=== PATIENT | male | born 1965 | race Caucasian/White ===

== ENCOUNTER 2017-03-28 16:26 | Emergency (ER) | payer MEDICARE, OTHER ==
[~2017-03-28] VITALS: Ht 175.3 cm; Wt 75.0 kg
[~2017-03-28 16:26] MED LIST: HYDR25TA PO; LISI2.5T2 PO
[2017-03-28 17:36] LABS: ALANINE AMINOTRANSFERASE 20 U/L (12-78); ALBUMIN 2.1 g/dL (3.4-5.0); ANION GAP 11 mmol/L (8-16); ASPARTATE AMINOTRANSFERASE 57 U/L (15-37); BILIRUBIN,TOTAL 3.2 mg/dL (0.1-1.0); CALCIUM, TOTAL 8.3 mg/dL (8.8-10.5); CARBON DIOXIDE 21 mmol/L (22-29); CHLORIDE 112 mmol/L (98-107); CREATININE 0.82 mg/dL (0.60-1.30); GLOMERULAR FILTR. RATE CALC > 60 mL/min (>60); SODIUM SERUM 144 mmol/L (136-145); UREA NITROGEN, BLOOD 9 mg/dL (7-18)
[2017-03-28 17:42] LABS: BASOPHILS % (AUTO) 0.7 % (0.0-2.0); EOSINOPHILS % (AUTO) 2.3 % (1.0-6.0); HEMOGLOBIN 10.2 g/dL (13.5-17.5); LYMPHOCYTES # (AUTO) 2.2 K/uL (1.0-4.8); MEAN CORPUSCULAR HEMOGLOBIN 36.7 pg (26.0-34.0); MEAN CORPUSCULAR HGB CONC 35.2 G/dL (31.0-37.0); MEAN CORPUSCULAR VOLUME 104 fL (80-100); MONOCYTES # (AUTO) 1.2 K/uL (0.1-1.0); NEUTROPHILS # (AUTO) 3.7 K/uL (1.8-7.7); PLATELET COUNT (AUTO) 109 K/uL (150-450); RED BLOOD CELL COUNT(AUTO) 2.79 MIL/uL (4.50-5.90); RED CELL DISTRIBUTION WIDTH 21.2 % (11.5-14.5); WHITE BLOOD COUNT (AUTO) 7.4 K/uL (4.5-11.0)
[2017-03-28 17:45] LABS: RBC MORPHOLOGY COMMENT ABNORMAL RBC MORPH
[2017-03-28 17:54] LABS: POTASSIUM 2.6 mmol/L (3.5-5.1)
[2017-03-28] MEDS ORDERED: POTASSIUM CHLORIDE 20 MEQ ER TABLET PO ONE ×2 (18:15→20:00)
[2017-03-28] MEDS: POTASSIUM CHL 10 MEQ/WATER 50 ML IV SCH ×2 (18:32→19:10)
[2017-03-28 19:12] VITALS: BP 123/70
== END 2017-03-28 21:00 | disposition home or self-care (01) ==
LOC: EMS 16:27
DX: T51.91XA Toxic effect of unspecified alcohol, accidental (unintentional), initial encounter (principal); E87.6 Hypokalemia; J44.9 Chronic obstructive pulmonary disease, unspecified; I10 Essential (primary) hypertension; F17.210 Nicotine dependence, cigarettes, uncomplicated; Y92.89 Other specified places as the place of occurrence of the external cause
CPT/HCPCS: 36415; 80053; 85025; 96365; 99284; G0480; J3480

== ENCOUNTER 2017-04-01 19:33 | Inpatient (IN) | payer MEDICARE, MEDICAID ==
[~2017-04-01] VITALS: Ht 172.7 cm; Wt 73.7 kg
[~2017-04-01 19:33] MED LIST changes: +HALOPERIDOL 5 MG TABLET PO PRN; +INFLUENZA VIRUS VACCINE QVS 2017-18 (3YR+)/PF 60 MCG/0.5 ML SYRINGE IM ONE; +ZOLPIDEM TARTRATE 10 MG TABLET PO PRN
[2017-04-01] MEDS ORDERED: PNEUMOCOCCAL VACCINE POLYVALENT 0.5 ML VIAL [PPSV23] IM ONE (19:45)
[2017-04-01 21:37] LABS: APPEARANCE,URINE CLEAR (CLEAR); GLUCOSE, URINE (UA) NEGATIVE (NEGATIVE); KETONES,URINE NEGATIVE (NEGATIVE); LEUKOCYTE ESTERASE ,URINE NEGATIVE (NEGATIVE); OCCULT BLOOD,URINE LARGE (NEGATIVE); PROTEIN,URINE TRACE (NEGATIVE)
[2017-04-01 21:40] LABS: ADD UA MICROSCOPIC YES
[2017-04-01 21:52] LABS: SQUAMOUS EPITHELIAL CELL,UR Few /LPF (None Seen); WBC,URINE 0-2 /HPF (0-5)
[2017-04-01 21:57] LABS: ANION GAP 8 mmol/L (8-16); CALCIUM, TOTAL 7.9 mg/dL (8.8-10.5); CARBON DIOXIDE 22 mmol/L (22-29); CHLORIDE 108 mmol/L (98-107); CREATININE 0.75 mg/dL (0.60-1.30); GLOMERULAR FILTR. RATE CALC > 60 mL/min (>60); POTASSIUM 3.1 mmol/L (3.5-5.1); SODIUM SERUM 138 mmol/L (136-145); UREA NITROGEN, BLOOD 7 mg/dL (7-18)
[2017-04-01 22:03] LABS: ALANINE AMINOTRANSFERASE 16 U/L (12-78); ALBUMIN 2.1 g/dL (3.4-5.0); ASPARTATE AMINOTRANSFERASE 52 U/L (15-37); BILIRUBIN,TOTAL 2.5 mg/dL (0.1-1.0); TOTAL PROTEIN, SERUM 6.8 g/dL (6.4-8.2)
[2017-04-01 22:27] LABS: HEMATOCRIT 29.2 % (41-53); HEMOGLOBIN 10.2 g/dL (13.5-17.5); MEAN CORPUSCULAR HEMOGLOBIN 36.8 pg (26.0-34.0); MEAN CORPUSCULAR HGB CONC 35.1 G/dL (31.0-37.0); MEAN CORPUSCULAR VOLUME 105 fL (80-100); PLATELET COUNT (AUTO) 129 K/uL (150-450); RED BLOOD CELL COUNT(AUTO) 2.78 MIL/uL (4.50-5.90); RED CELL DISTRIBUTION WIDTH 20.1 % (11.5-14.5); WHITE BLOOD COUNT (AUTO) 6.6 K/uL (4.5-11.0)
[2017-04-01 22:28] LABS: BASOPHILS % (AUTO) 0.8 % (0.0-2.0); EOSINOPHILS % (AUTO) 3.5 % (1.0-6.0); LYMPHOCYTES % (AUTO) 30.4 % (22.0-44.0); MONOCYTES # (AUTO) 0.9 K/uL (0.1-1.0); MONOCYTES % (AUTO) 13.9 % (2.0-9.0); NEUTROPHILS # (AUTO) 3.4 K/uL (1.8-7.7); NEUTROPHILS % (AUTO) 51.4 % (40.0-70.0)
[2017-04-01 22:29] LABS: RBC MORPHOLOGY COMMENT ABNORMAL RBC MORPH
[2017-04-01] MEDS ORDERED: POTASSIUM CHLORIDE 20 MEQ ER TABLET PO ONE (23:00)
[2017-04-02 02:20] VITALS: BP 104/94
[2017-04-02] MEDS: LORazepam 2 MG TABLET PO PRN (02:20)
[2017-04-02] MEDS ORDERED: PETROLATUM,WHITE 71 GM JELLY TP PRN (07:30)
[2017-04-02] MEDS ORDERED: TRIAMCINOLONE 0.1% 15 GM OINTMENT TP PRN (07:30)
[2017-04-02] MEDS ORDERED: ALBUTEROL SULFATE HFA 90 MCG/PUFF 8 GM INHALER IH PRN (07:30)
[2017-04-02] MEDS ORDERED: IBUPROFEN 600 MG TABLET PO PRN (07:30)
[2017-04-02] MEDS ORDERED: CloNIDine HCL 0.1 MG TABLET PO PRN (07:30)
[2017-04-02] MEDS ORDERED: BACITRACIN 28.4 GM OINTMENT TP PRN (07:30)
[2017-04-02] MEDS ORDERED: BENZOCAINE/MENTHOL LOZENGE MM PRN (07:30)
[2017-04-02] MEDS ORDERED: ONDANSETRON HCL 4 MG TABLET PO PRN (07:30)
[2017-04-02] MEDS ORDERED: ACETAMINOPHEN 325 MG TABLET PO PRN (07:30)
[2017-04-02] MEDS ORDERED: MAGNESIUM HYDROXIDE SUSPENSION 30 ML UDCUP PO PRN (07:30)
[2017-04-02] MEDS ORDERED: LOPERAMIDE HCL 2 MG CAPSULE PO PRN (07:30)
[2017-04-02] MEDS ORDERED: PERMETHRIN 5% 60 GM CREAM TP ONE (07:30)
[2017-04-02] MEDS ORDERED: MAG HYDROX/AL HYDROX/SIMETH ES 30 ML SUSPENSION UDCUP PO PRN (07:30)
[2017-04-02 08:52] LABS: ALANINE AMINOTRANSFERASE 17 U/L (12-78); ALBUMIN 1.9 g/dL (3.4-5.0); ASPARTATE AMINOTRANSFERASE 49 U/L (15-37); BILIRUBIN,TOTAL 2.3 mg/dL (0.1-1.0); CALCIUM, TOTAL 7.7 mg/dL (8.8-10.5); CARBON DIOXIDE 23 mmol/L (22-29); CHOL/HDL RATIO 2.9 (4.2-7.3); GLOMERULAR FILTR. RATE CALC > 60 mL/min (>60); THYROID STIMULATING HORMONE 0.76 uIU/mL (0.36-3.74); UREA NITROGEN, BLOOD 8 mg/dL (7-18)
[2017-04-02] MEDS: LISINOPRIL 5 MG TABLET PO SCH (09:00)
[2017-04-02] MEDS: MULTIVITAMINS WITH MINERALS, THERAPEUTIC TABLET PO SCH (09:00)
[2017-04-02 09:38] LABS: BASOPHILS % (AUTO) 0.7 % (0.0-2.0); EOSINOPHILS % (AUTO) 4.2 % (1.0-6.0); HEMATOCRIT 29.5 % (41-53); HEMOGLOBIN 10.5 g/dL (13.5-17.5); LYMPHOCYTES # (AUTO) 1.8 K/uL (1.0-4.8); LYMPHOCYTES % (AUTO) 30.9 % (22.0-44.0); MEAN CORPUSCULAR HEMOGLOBIN 37.3 pg (26.0-34.0); MEAN CORPUSCULAR HGB CONC 35.5 G/dL (31.0-37.0); MEAN CORPUSCULAR VOLUME 105 fL (80-100); MONOCYTES # (AUTO) 0.9 K/uL (0.1-1.0); NEUTROPHILS # (AUTO) 2.7 K/uL (1.8-7.7); NEUTROPHILS % (AUTO) 48.2 % (40.0-70.0); RED BLOOD CELL COUNT(AUTO) 2.81 MIL/uL (4.50-5.90); RED CELL DISTRIBUTION WIDTH 20.3 % (11.5-14.5); WHITE BLOOD COUNT (AUTO) 5.7 K/uL (4.5-11.0)
[2017-04-02 10:45] LABS: PLATELET COUNT (AUTO) 113 K/uL (150-450)
[2017-04-02 10:46] LABS: RBC MORPHOLOGY COMMENT ABNORMAL RBC MORPH
[2017-04-02 11:11] LABS: HEMOGLOBIN A1C 3.9 % (4.5-6.2)
[2017-04-02 11:12] LABS: ANION GAP 7 mmol/L (8-16); CHLORIDE 111 mmol/L (98-107); POTASSIUM 3.4 mmol/L (3.5-5.1); SODIUM SERUM 141 mmol/L (136-145)
[2017-04-02] MEDS ORDERED: POTASSIUM CHLORIDE 20 MEQ ER TABLET PO ONE (11:45)
[2017-04-02] MEDS: CITALOPRAM HYDROBROMIDE 20 MG TABLET PO SCH (13:08)
[2017-04-02 16:05] VITALS: BP 127/83
[2017-04-03 00:10] VITALS: BP 183/101
[2017-04-03 02:06] VITALS: BP 114/71
[2017-04-03 09:45] VITALS: BP 112/62
[2017-04-03] MEDS: LISINOPRIL 5 MG TABLET PO SCH (09:45)
[2017-04-03] MEDS: MULTIVITAMINS WITH MINERALS, THERAPEUTIC TABLET PO SCH (09:45)
[2017-04-03] MEDS: CITALOPRAM HYDROBROMIDE 20 MG TABLET PO SCH (09:45)
[2017-04-03] MEDS: LORazepam 2 MG TABLET PO PRN (10:19)
[2017-04-04 06:50] LABS: HEPATITIS Bs ANTIGEN SCREEN P Negative (Negative); HEPATITIS C AB SCREEN >11.0 s/co ratio (0.0-0.9)
[2017-04-04 08:00] VITALS: BP 137/85
[2017-04-04] MEDS: CITALOPRAM HYDROBROMIDE 20 MG TABLET PO SCH (09:32)
[2017-04-04] MEDS: MULTIVITAMINS WITH MINERALS, THERAPEUTIC TABLET PO SCH (09:32)
[2017-04-04] MEDS: LISINOPRIL 5 MG TABLET PO SCH (09:32)
[2017-04-04 16:18] VITALS: BP 132/83
[2017-04-04] MEDS: LORazepam 2 MG TABLET PO PRN (17:10)
[2017-04-05 08:23] VITALS: BP 140/86
[2017-04-05] MEDS: LISINOPRIL 5 MG TABLET PO SCH (09:19)
[2017-04-05] MEDS: CITALOPRAM HYDROBROMIDE 20 MG TABLET PO SCH (09:19)
[2017-04-05] MEDS: MULTIVITAMINS WITH MINERALS, THERAPEUTIC TABLET PO SCH (09:19)
[2017-04-05 16:16] VITALS: BP 141/73
[2017-04-06] VITALS: BP 141/69
[2017-04-06 07:05] VITALS: BP 138/88
[2017-04-06] MEDS: LISINOPRIL 5 MG TABLET PO SCH (08:33)
[2017-04-06] MEDS: CITALOPRAM HYDROBROMIDE 20 MG TABLET PO SCH (08:34)
[2017-04-06] MEDS: MULTIVITAMINS WITH MINERALS, THERAPEUTIC TABLET PO SCH (08:34)
[2017-04-06 09:05] VITALS: BP 139/81
[2017-04-06] MEDS ORDERED: HYPROMELLOSE 0.5% 15 ML OPHTHALMIC SOLUTION OU PRN (10:00)
[2017-04-06 16:20] VITALS: BP 122/63
[2017-04-06] MEDS: LORazepam 2 MG TABLET PO PRN ×2 (20:20)
[2017-04-07 01:20] VITALS: BP 133/79
[2017-04-07 08:15] VITALS: BP 137/79
[2017-04-07] MEDS: LISINOPRIL 5 MG TABLET PO SCH (08:17)
[2017-04-07] MEDS: CITALOPRAM HYDROBROMIDE 20 MG TABLET PO SCH (08:18)
[2017-04-07] MEDS: MULTIVITAMINS WITH MINERALS, THERAPEUTIC TABLET PO SCH (08:18)
[2017-04-07] MEDS ORDERED: VITAD1000 PO (08:24)
[2017-04-07] MEDS ORDERED: LISI2.5T91 PO (08:24)
[2017-04-07] MEDS ORDERED: CITA20TA9 PO (08:24)
[2017-04-07] MEDS ORDERED: CHOLECALCIFEROL (VIT D3) 1,000 UNITS TABLET PO SCH ×2 (09:00)
== END 2017-04-07 12:00 | disposition home or self-care (01) | DRG 881 ==
LOC: EMS 19:34 → B2X 20:40
PROVIDERS: ADMIT Psychiatry & Neurology Psychiatry; ATTEND Psychiatry & Neurology Psychiatry
DX: F32.9 Major depressive disorder, single episode, unspecified (principal); E46 Unspecified protein-calorie malnutrition; D69.6 Thrombocytopenia, unspecified; F23 Brief psychotic disorder; E87.6 Hypokalemia; F10.10 Alcohol abuse, uncomplicated; F17.200 Nicotine dependence, unspecified, uncomplicated; I10 Essential (primary) hypertension; G47.00 Insomnia, unspecified; D53.9 Nutritional anemia, unspecified; J44.9 Chronic obstructive pulmonary disease, unspecified; L30.9 Dermatitis, unspecified; Z96.659 Presence of unspecified artificial knee joint; Z71.6 Tobacco abuse counseling; E55.9 Vitamin D deficiency, unspecified; Z71.41 Alcohol abuse counseling and surveillance of alcoholic; Z79.899 Other long term (current) drug therapy; Z79.51 Long term (current) use of inhaled steroids; Z28.21 Immunization not carried out because of patient refusal
CPT/HCPCS: 80074; 82306; 82607; 82746; 83036; 84132; 84439; 84443; 87081; 90471; 99285; G0480

== ENCOUNTER 2017-06-18 14:48 | Inpatient (IN) | payer MEDICARE, MEDICAID ==
[~2017-06-18] VITALS: Ht 175.3 cm; Wt 76.5 kg
[2017-06-18 13:46] VITALS: BP 158/91
[~2017-06-18 14:48] MED LIST changes: +CITA20TA9 PO; -HALOPERIDOL 5 MG TABLET PO PRN; -HYDR25TA PO; -INFLUENZA VIRUS VACCINE QVS 2017-18 (3YR+)/PF 60 MCG/0.5 ML SYRINGE IM ONE; -LISI2.5T2 PO; +LISI2.5T91 PO; +VITAD1000 PO; -ZOLPIDEM TARTRATE 10 MG TABLET PO PRN
[2017-06-18] MEDS ORDERED: HALOPERIDOL 5 MG TABLET PO PRN (15:00)
[2017-06-18] MEDS ORDERED: PNEUMOCOCCAL VACCINE POLYVALENT 0.5 ML VIAL [PPSV23] IM ONE (15:30)
[2017-06-18] MEDS ORDERED: INFLUENZA VIRUS VACCINE QVS 2017-18 (3YR+)/PF 60 MCG/0.5 ML SYRINGE IM ONE (15:30)
[2017-06-18] MEDS ORDERED: ALBUTEROL SULFATE HFA 90 MCG/PUFF 8 GM INHALER IH ONE (19:15)
[2017-06-18] MEDS ORDERED: OSELTAMIVIR PHOSPHATE 75 MG CAPSULE PO ONE (19:30)
[2017-06-18] MEDS ORDERED: ACETAMINOPHEN 325 MG TABLET PO ONE (19:30)
[2017-06-18 20:55] LABS: INFLUENZA TYPE A NEGATIVE FOR TYPE A (NEGATIVE); INFLUENZA TYPE B NEGATIVE FOR TYPE B (NEGATIVE)
[2017-06-19] MEDS ORDERED: PERMETHRIN 5% 60 GM CREAM TP ONE (00:30)
[2017-06-19 01:38] LABS: AMPHET/METH SCREEN,URINE NEGATIVE (NEGATIVE); BARBITURATE SCREEN, URINE NEGATIVE (NEGATIVE); BENZODIAZEPINES SCREEN,URINE NEGATIVE (NEGATIVE); CANNABINOID SCREEN,URINE NEGATIVE (NEGATIVE); COCAINE SCREEN,URINE NEGATIVE (NEGATIVE); METHADONE SCREEN, URINE NEGATIVE (NEGATIVE); OPIATE SCREEN,URINE NEGATIVE (NEGATIVE)
[2017-06-19 01:39] LABS: ANION GAP 6 mmol/L (8-16); CALCIUM, TOTAL 7.7 mg/dL (8.8-10.5); CARBON DIOXIDE 27 mmol/L (22-29); CHLORIDE 108 mmol/L (98-107); CREATININE 0.65 mg/dL (0.60-1.30); GLOMERULAR FILTR. RATE CALC > 60 mL/min (>60); GLUCOSE,RANDOM 91 mg/dL (70-110); POTASSIUM 3.2 mmol/L (3.5-5.1); SODIUM SERUM 141 mmol/L (136-145); UREA NITROGEN, BLOOD 8 mg/dL (7-18)
[2017-06-19 01:42] LABS: PHENCYCLIDINE SCREEN,URINE NEGATIVE (NEGATIVE)
[2017-06-19 01:45] LABS: ALANINE AMINOTRANSFERASE 53 U/L (12-78); ALBUMIN 1.8 g/dL (3.4-5.0); ALKALINE PHOSPHATASE 180 U/L (46-116); ASPARTATE AMINOTRANSFERASE 200 U/L (15-37); BILIRUBIN,TOTAL 3.3 mg/dL (0.1-1.0); TOTAL PROTEIN, SERUM 6.6 g/dL (6.4-8.2)
[2017-06-19 02:23] LABS: BASOPHILS % (AUTO) 0.9 % (0.0-2.0); EOSINOPHILS % (AUTO) 6.8 % (1.0-6.0); HEMOGLOBIN 9.8 g/dL (13.5-17.5); LYMPHOCYTES # (AUTO) 1.9 K/uL (1.0-4.8); MEAN CORPUSCULAR VOLUME 113 fL (80-100); MONOCYTES # (AUTO) 0.9 K/uL (0.1-1.0); MONOCYTES % (AUTO) 14.3 % (2.0-9.0); NEUTROPHILS # (AUTO) 2.8 K/uL (1.8-7.7); RED CELL DISTRIBUTION WIDTH 15.9 % (11.5-14.5)
[2017-06-19 04:22] LABS: RED BLOOD CELL COUNT(AUTO) 0.64 MIL/uL (4.50-5.90)
[2017-06-19 04:24] LABS: MEAN CORPUSCULAR HGB CONC 28.8 G/dL (31.0-37.0)
[2017-06-19 05:00] LABS: PLATELET COUNT (AUTO) 89 K/uL (150-450)
[2017-06-19 06:41] VITALS: BP 160/96
[2017-06-19 10:24] VITALS: BP 159/85
[2017-06-19] MEDS ORDERED: POTASSIUM CHLORIDE 20 MEQ ER TABLET PO ONE (11:15)
[2017-06-19] MEDS: HYDROCORTISONE 2.5% 30 GM OINTMENT TP PRN (13:59)
[2017-06-19] MEDS: ACETAMINOPHEN 325 MG TABLET PO PRN (16:35)
[2017-06-19 17:00] VITALS: BP 160/100
[2017-06-19 17:30] VITALS: BP 158/102
[2017-06-20 07:40] LABS: HEMOGLOBIN A1C 3.7 % (4.5-6.2)
[2017-06-20] MEDS: SERTRALINE HCL 50 MG TABLET PO SCH (08:03)
[2017-06-20 08:09] VITALS: BP 151/88
[2017-06-20] MEDS: ACETAMINOPHEN 325 MG TABLET PO PRN ×2 (08:09→20:18)
[2017-06-20 09:06] LABS: ALANINE AMINOTRANSFERASE 56 U/L (12-78); ALBUMIN 1.9 g/dL (3.4-5.0); ALKALINE PHOSPHATASE 178 U/L (46-116); ANION GAP 9 mmol/L (8-16); ASPARTATE AMINOTRANSFERASE 197 U/L (15-37); BILIRUBIN,TOTAL 2.2 mg/dL (0.1-1.0); CALCIUM, TOTAL 8.4 mg/dL (8.8-10.5); CARBON DIOXIDE 23 mmol/L (22-29); CHLORIDE 108 mmol/L (98-107); CHOL/HDL RATIO 4.2 (4.2-7.3); CHOLESTEROL 84 mg/dL (131-200); CREATINE KINASE MB 1.8 ng/mL (0-5); CREATINE KINASE, TOTAL 106 U/L (39-308); CREATININE 0.73 mg/dL (0.60-1.30); GLOMERULAR FILTR. RATE CALC > 60 mL/min (>60); GLUCOSE,RANDOM 85 mg/dL (70-110); HDL CHOLESTEROL 20 mg/dL (40-60); LDL CHOL (CALC.) 53 mg/dL (0-130); POTASSIUM 3.3 mmol/L (3.5-5.1); SODIUM SERUM 140 mmol/L (136-145); TOTAL PROTEIN, SERUM 6.8 g/dL (6.4-8.2); TRIGLYCERIDES 56 mg/dL (15-150); UREA NITROGEN, BLOOD 10 mg/dL (7-18)
[2017-06-20] MEDS ORDERED: ONDANSETRON HCL 4 MG TABLET PO PRN (09:30)
[2017-06-20 09:38] LABS: FREE T4 (FREE THYROXINE) 0.91 ng/dL (0.76-1.46); THYROID STIMULATING HORMONE 0.82 uIU/mL (0.36-3.74)
[2017-06-20] MEDS ORDERED: POTASSIUM CHLORIDE 20 MEQ ER TABLET PO ONE (09:45)
[2017-06-20 12:48] LABS: FOLATE SERUM 8.1 ng/mL (5.4-)
[2017-06-20 16:00] VITALS: BP 142/94
[2017-06-20] MEDS: MAGNESIUM OXIDE 400 MG TABLET PO SCH (17:03)
[2017-06-20 20:10] VITALS: BP 148/90
[2017-06-20] MEDS: LORazepam 2 MG TABLET PO PRN (21:00)
[2017-06-20] MEDS: ZOLPIDEM TARTRATE 10 MG TABLET PO PRN (22:57)
[2017-06-21 09:36] LABS: BASOPHILS # (AUTO) 0.03 K/uL (0.00-0.20); BASOPHILS % (AUTO) 0.5 % (0.0-2.0); EOSINOPHILS # (AUTO) 0.49 K/uL (0.00-0.70); EOSINOPHILS % (AUTO) 7.08 % (1.0-6.0); HEMOGLOBIN 11.1 g/dL (13.5-17.5); LYMPHOCYTES # (AUTO) 1.9 K/uL (1.0-4.8); LYMPHOCYTES % (AUTO) 27.1 % (22.0-44.0); MEAN CORPUSCULAR HEMOGLOBIN 40.1 pg (26.0-34.0); MEAN CORPUSCULAR HGB CONC 36.9 G/dL (31.0-37.0); MEAN CORPUSCULAR VOLUME 109 fL (80-100); MONOCYTES # (AUTO) 0.7 K/uL (0.1-1.0); MONOCYTES % (AUTO) 10.3 % (2.0-9.0); NEUTROPHILS # (AUTO) 3.8 K/uL (1.8-7.7); PLATELET COUNT (AUTO) 136 K/uL (150-450); RED BLOOD CELL COUNT(AUTO) 2.77 MIL/uL (4.50-5.90)
[2017-06-21] MEDS: SERTRALINE HCL 50 MG TABLET PO SCH (09:57)
[2017-06-21] MEDS: MAGNESIUM OXIDE 400 MG TABLET PO SCH ×2 (09:57→17:51)
[2017-06-21 10:37] LABS: ERYTHROCYTE SEDIMENTATION RATE 82 MM/HR (0-15)
[2017-06-21 13:49] VITALS: BP 125/79
[2017-06-21 21:23] VITALS: BP 141/85
[2017-06-21] MEDS: LORazepam 2 MG TABLET PO PRN (21:23)
[2017-06-21] MEDS: ACETAMINOPHEN 325 MG TABLET PO PRN (21:23)
[2017-06-22 02:04] VITALS: BP 152/95
[2017-06-22] MEDS: ZOLPIDEM TARTRATE 10 MG TABLET PO PRN (02:06)
[2017-06-22 08:16] LABS: ANION GAP 9 mmol/L (8-16); CALCIUM, TOTAL 8.3 mg/dL (8.8-10.5); CARBON DIOXIDE 24 mmol/L (22-29); CHLORIDE 106 mmol/L (98-107); CREATININE 0.86 mg/dL (0.60-1.30); GLOMERULAR FILTR. RATE CALC > 60 mL/min (>60); GLUCOSE,RANDOM 80 mg/dL (70-110); POTASSIUM 3.8 mmol/L (3.5-5.1); SODIUM SERUM 139 mmol/L (136-145); UREA NITROGEN, BLOOD 15 mg/dL (7-18)
[2017-06-22] MEDS: MAGNESIUM OXIDE 400 MG TABLET PO SCH ×2 (09:13→16:47)
[2017-06-22] MEDS: SERTRALINE HCL 50 MG TABLET PO SCH (09:13)
[2017-06-22 09:54] VITALS: BP 133/89
[2017-06-22 17:46] VITALS: BP 135/70
[2017-06-23 00:31] VITALS: BP 146/95
[2017-06-23] MEDS: ACETAMINOPHEN 325 MG TABLET PO PRN ×2 (00:31→16:16)
[2017-06-23] MEDS: LORazepam 2 MG TABLET PO PRN ×2 (00:31→20:11)
[2017-06-23] MEDS: ZOLPIDEM TARTRATE 10 MG TABLET PO PRN ×2 (00:31→21:57)
[2017-06-23] MEDS: SERTRALINE HCL 100 MG TABLET PO SCH (08:53)
[2017-06-23] MEDS: MAGNESIUM OXIDE 400 MG TABLET PO SCH ×2 (08:53→16:13)
[2017-06-23 13:33] VITALS: BP 138/82
[2017-06-23] MEDS: HYDROCORTISONE 2.5% 30 GM OINTMENT TP PRN (14:39)
[2017-06-23 16:16] VITALS: BP 140/59
[2017-06-24 08:00] VITALS: BP 142/93
[2017-06-24] MEDS: HYDROCORTISONE 2.5% 30 GM OINTMENT TP PRN (08:24)
[2017-06-24] MEDS: MAGNESIUM OXIDE 400 MG TABLET PO SCH ×2 (08:24→15:53)
[2017-06-24] MEDS: SERTRALINE HCL 100 MG TABLET PO SCH (08:24)
[2017-06-24] MEDS ORDERED: SERT100T12 PO (15:25)
[2017-06-24] MEDS ORDERED: MAGOX PO (15:28)
[2017-06-24 17:00] VITALS: BP 131/82
== END 2017-06-24 18:00 | DRG 885 ==
LOC: EMS 14:57 → 3EX 22:10
PROVIDERS: ADMIT Psychiatry & Neurology Psychiatry; ATTEND Psychiatry & Neurology Psychiatry
DX: F33.2 Major depressive disorder, recurrent severe without psychotic features (principal); D69.6 Thrombocytopenia, unspecified; E46 Unspecified protein-calorie malnutrition; R45.851 Suicidal ideations; E83.51 Hypocalcemia; R45.850 Homicidal ideations; I10 Essential (primary) hypertension; J44.9 Chronic obstructive pulmonary disease, unspecified; F17.210 Nicotine dependence, cigarettes, uncomplicated; F10.10 Alcohol abuse, uncomplicated; D53.9 Nutritional anemia, unspecified; E87.6 Hypokalemia; L30.9 Dermatitis, unspecified; G47.00 Insomnia, unspecified; F43.10 Post-traumatic stress disorder, unspecified; F90.9 Attention-deficit hyperactivity disorder, unspecified type; L71.9 Rosacea, unspecified; Z59.0 Homelessness; Z96.651 Presence of right artificial knee joint; Z81.8 Family history of other mental and behavioral disorders; Z88.8 Allergy status to other drugs, medicaments and biological substances; Z79.899 Other long term (current) drug therapy
CPT/HCPCS: 71046; 80074; 80307; 82306; 82607; 82746; 83036; 83735; 84132; 84439; 84443; 85651; 87804; 90471; 96372; 99285; G0480; J3535; Q0162

== ENCOUNTER 2018-05-25 14:12 | Emergency (ER) | payer MEDICARE, MEDICAID ==
[~2018-05-25] VITALS: Ht 172.7 cm; Wt 68.2 kg
[~2018-05-25 14:12] MED LIST changes: -CITA20TA9 PO; -LISI2.5T91 PO; +MAGOX PO; +SERT100T12 PO; -VITAD1000 PO
[2018-05-25] MEDS ORDERED: LISI-660 PO (14:55)
[2018-05-25] MEDS ORDERED: ACETAMINOPHEN 500 MG TABLET PO ONE (17:15)
[2018-05-25] MEDS: ACETAMINOPHEN/CODEINE 300-30 MG TABLET PO ONE (17:30)
[2018-05-25] MEDS: LISINOPRIL 10 MG TABLET PO ONE (19:20)
[2018-05-25 20:38] VITALS: BP 148/92
== END 2018-05-25 20:53 | disposition home or self-care (01) ==
LOC: EMS 14:13
DX: S00.03XA Contusion of scalp, initial encounter (principal); G89.29 Other chronic pain; M54.9 Dorsalgia, unspecified; K43.9 Ventral hernia without obstruction or gangrene; J44.9 Chronic obstructive pulmonary disease, unspecified; I10 Essential (primary) hypertension; F17.210 Nicotine dependence, cigarettes, uncomplicated; Z88.8 Allergy status to other drugs, medicaments and biological substances; W22.8XXA Striking against or struck by other objects, initial encounter; Y93.89 Activity, other specified; Y92.89 Other specified places as the place of occurrence of the external cause; Y99.8 Other external cause status
CPT/HCPCS: 70450

== ENCOUNTER 2018-09-10 13:45 | Emergency (ER) | payer MEDICARE, OTHER ==
[~2018-09-10] VITALS: Ht 172.7 cm; Wt 81.8 kg
[~2018-09-10 13:45] MED LIST changes: +DIPH25 PO; +HYDR25TA PO; +LISI-660 PO; -MAGOX PO; +OMEP10 PO; +QUET25TA PO; -SERT100T12 PO; +ZOLP5 PO
[2018-09-10] MEDS ORDERED: HYDR-4061 PO (14:22)
[2018-09-10] MEDS ORDERED: ACETAMINOPHEN 500 MG TABLET PO ONE (15:00)
[2018-09-10 16:30] VITALS: BP 125/82
== END 2018-09-10 16:51 | disposition home or self-care (01) ==
LOC: EMS 13:48
DX: G89.29 Other chronic pain (principal); M25.562 Pain in left knee; I10 Essential (primary) hypertension; J44.9 Chronic obstructive pulmonary disease, unspecified; F32.9 Major depressive disorder, single episode, unspecified; F17.210 Nicotine dependence, cigarettes, uncomplicated; F10.20 Alcohol dependence, uncomplicated; Z79.899 Other long term (current) drug therapy; Z96.651 Presence of right artificial knee joint; Z88.8 Allergy status to other drugs, medicaments and biological substances
CPT/HCPCS: 99406

== ENCOUNTER 2018-09-12 03:44 | Emergency (ER) | payer MEDICARE, OTHER ==
[~2018-09-12] VITALS: Ht 177.8 cm; Wt 72.7 kg
[~2018-09-12 03:44] MED LIST changes: +HYDR-4061 PO
[2018-09-12] MEDS ORDERED: TraMADol HCL 50 MG TABLET PO ONE (05:30)
[2018-09-12 05:35] VITALS: BP 131/83
== END 2018-09-12 06:26 | disposition home or self-care (01) ==
LOC: EMS 03:46
DX: M79.604 Pain in right leg (principal); M79.605 Pain in left leg; I10 Essential (primary) hypertension; F32.9 Major depressive disorder, single episode, unspecified; J44.9 Chronic obstructive pulmonary disease, unspecified; F17.210 Nicotine dependence, cigarettes, uncomplicated; Z88.8 Allergy status to other drugs, medicaments and biological substances; Z79.899 Other long term (current) drug therapy

== ENCOUNTER 2018-11-08 18:44 | Emergency (ER) | payer MEDICARE, OTHER ==
[~2018-11-08] VITALS: Ht 172.7 cm; Wt 78.2 kg
[~2018-11-08 18:44] MED LIST changes: -QUET25TA PO
[2018-11-08] MEDS ORDERED: ACETAMINOPHEN 500 MG TABLET PO ONE (21:00)
[2018-11-08 22:30] VITALS: BP 148/78
== END 2018-11-08 22:45 | disposition home or self-care (01) ==
LOC: EMS 18:45
DX: S50.01XA Contusion of right elbow, initial encounter (principal); S50.311A Abrasion of right elbow, initial encounter; I10 Essential (primary) hypertension; E11.9 Type 2 diabetes mellitus without complications; J44.9 Chronic obstructive pulmonary disease, unspecified; F17.210 Nicotine dependence, cigarettes, uncomplicated; Z79.899 Other long term (current) drug therapy; X58.XXXA Exposure to other specified factors, initial encounter; Y93.89 Activity, other specified; Y92.89 Other specified places as the place of occurrence of the external cause; Y99.8 Other external cause status

== ENCOUNTER 2019-03-29 20:11 | Inpatient (IN) | payer MEDICARE, OTHER ==
[~2019-03-29] VITALS: Ht 172.7 cm; Wt 78.0 kg
[2019-03-29 20:50] LABS: GLUCOSE,POINT OF CARE 95 MG/DL (70-110)
[2019-03-29 21:42] LABS: EOSINOPHILS % (AUTO) 4.5 % (1.0-6.0); MEAN CORPUSCULAR HEMOGLOBIN 29.5 pg (26.0-34.0); MEAN CORPUSCULAR VOLUME 92 fL (80-100); MONOCYTES # (AUTO) 0.5 K/uL (0.1-1.0); MONOCYTES % (AUTO) 13.9 % (2.0-9.0); NEUTROPHILS # (AUTO) 1.6 K/uL (1.8-7.7); NEUTROPHILS % (AUTO) 50.6 % (40.0-70.0); RED BLOOD CELL COUNT(AUTO) 2.71 MIL/uL (4.50-5.90); RED CELL DISTRIBUTION WIDTH 22.4 % (11.5-14.5)
[2019-03-29 22:05] LABS: ALANINE AMINOTRANSFERASE 36 U/L (12-78); ALBUMIN 2.2 g/dL (3.4-5.0); ALKALINE PHOSPHATASE 153 U/L (46-116); ANION GAP 8 mmol/L (8-16); ASPARTATE AMINOTRANSFERASE 87 U/L (15-37); BILIRUBIN,TOTAL 1.9 mg/dL (0.1-1.0); CALCIUM, TOTAL 7.9 mg/dL (8.8-10.5); CARBON DIOXIDE 23 mmol/L (22-29); CHLORIDE 110 mmol/L (98-107); CREATININE 0.73 mg/dL (0.60-1.30); GLOMERULAR FILTR. RATE CALC > 60 mL/min (>60); GLUCOSE,RANDOM 100 mg/dL (70-110); LIPASE 152 U/L (73-393); SODIUM SERUM 141 mmol/L (136-145); TOTAL PROTEIN, SERUM 6.4 g/dL (6.4-8.2); UREA NITROGEN, BLOOD 8 mg/dL (7-18)
[2019-03-29 22:10] LABS: POTASSIUM 2.7 mmol/L (3.5-5.1)
[2019-03-29 22:26] LABS: PLATELET COUNT (AUTO) 97 K/uL (150-450)
[2019-03-29] MEDS ORDERED: POTASSIUM CHLORIDE 10% 40 MEQ/30 ML LIQUID UDCUP PO ONE (22:45)
[2019-03-29] MEDS ORDERED: SODIUM CHLORIDE 0.9% 1,000 ML IV ONE (22:45)
[2019-03-30 06:39] LABS: ANION GAP 13 mmol/L (8-16); CARBON DIOXIDE 21 mmol/L (22-29); CHLORIDE 113 mmol/L (98-107); CREATININE 0.79 mg/dL (0.60-1.30); GLUCOSE,RANDOM 91 mg/dL (70-110); POTASSIUM 3.3 mmol/L (3.5-5.1); SODIUM SERUM 147 mmol/L (136-145); UREA NITROGEN, BLOOD 7 mg/dL (7-18)
[2019-03-30 06:40] LABS: CALCIUM, TOTAL 7.5 mg/dL (8.8-10.5); GLOMERULAR FILTR. RATE CALC > 60 mL/min (>60)
[2019-03-30] MEDS ORDERED: ONDANSETRON HCL 4 MG/2 ML VIAL IVP PRN ×2 (06:45→13:15)
[2019-03-30] MEDS ORDERED: 0.9% SODIUM CHLORIDE 10 ML SYRINGE IVP PRN (06:45)
[2019-03-30] MEDS ORDERED: ACETAMINOPHEN 325 MG TABLET PO PRN ×2 (06:45→13:15)
[2019-03-30 07:50] VITALS: BP 169/101
[2019-03-30 11:43] VITALS: BP 156/89
[2019-03-30] MEDS ORDERED: POTASSIUM CHL 10 MEQ/WATER 50 ML IV PRN (11:45)
[2019-03-30] MEDS: POTASSIUM CHLORIDE 20 MEQ ER TABLET PO PRN (12:06)
[2019-03-30] MEDS ORDERED: BISACODYL 10 MG RECTAL RECTAL SUPPOSITORY PR PRN (13:15)
[2019-03-30] MEDS ORDERED: MAGNESIUM HYDROXIDE SUSPENSION 30 ML UDCUP PO PRN (13:15)
[2019-03-30] MEDS: HYDROCODONE/ACETAMINOPHEN 5-325 MG TABLET PO PRN ×2 (13:48→18:56)
[2019-03-30] MEDS ORDERED: PERMETHRIN 5% 60 GM CREAM TP ONE (14:45)
[2019-03-30 15:59] VITALS: BP 144/90
[2019-03-30] MEDS: HEPARIN SODIUM,PORCINE 5,000 UNITS/ML VIAL SQ SCH ×2 (16:00→23:07)
[2019-03-30] MEDS: NITROGLYCERIN 2% (1 GM=INCH) PACKET TP SCH (17:15)
[2019-03-30 17:21] VITALS: BP 153/96
[2019-03-30 20:21] VITALS: BP 135/100
[2019-03-30] MEDS: DOCUSATE SODIUM 100 MG CAPSULE PO SCH (20:57)
[2019-03-31 00:15] VITALS: BP 144/84
[2019-03-31] MEDS: HYDROCODONE/ACETAMINOPHEN 5-325 MG TABLET PO PRN ×3 (00:30→23:59)
[2019-03-31] MEDS: NITROGLYCERIN 2% (1 GM=INCH) PACKET TP SCH ×3 (00:30→16:32)
[2019-03-31] MEDS: ZOLPIDEM TARTRATE 5 MG TABLET PO PRN ×2 (00:30→23:59)
[2019-03-31 05:50] VITALS: BP 132/96
[2019-03-31 06:26] LABS: HEMOGLOBIN A1C 4.9 % (4.5-6.2)
[2019-03-31 06:34] LABS: CHOLESTEROL 68 mg/dL (131-200); HDL CHOLESTEROL 23 mg/dL (40-60); LDL CHOL (CALC.) 38 mg/dL (0-130); TRIGLYCERIDES 37 mg/dL (15-150)
[2019-03-31 06:53] LABS: BASOPHILS % (AUTO) 1.5 % (0.0-2.0); EOSINOPHILS % (AUTO) 8.5 % (1.0-6.0); HEMATOCRIT 21.7 % (41-53); LYMPHOCYTES # (AUTO) 0.7 K/uL (1.0-4.8); LYMPHOCYTES % (AUTO) 31.9 % (22.0-44.0); MEAN CORPUSCULAR HEMOGLOBIN 38.4 pg (26.0-34.0); MEAN CORPUSCULAR HGB CONC 36.9 G/dL (31.0-37.0); MEAN CORPUSCULAR VOLUME 104 fL (80-100); MONOCYTES # (AUTO) 0.3 K/uL (0.1-1.0); MONOCYTES % (AUTO) 14.3 % (2.0-9.0); NEUTROPHILS # (AUTO) 0.9 K/uL (1.8-7.7); NEUTROPHILS % (AUTO) 43.8 % (40.0-70.0); PLATELET COUNT (AUTO) 80 K/uL (150-450); RED BLOOD CELL COUNT(AUTO) 2.09 MIL/uL (4.50-5.90); RED CELL DISTRIBUTION WIDTH 22.3 % (11.5-14.5)
[2019-03-31 06:57] LABS: ANION GAP 8 mmol/L (8-16); CALCIUM, TOTAL 7.6 mg/dL (8.8-10.5); CARBON DIOXIDE 24 mmol/L (22-29); CHLORIDE 109 mmol/L (98-107); CREATININE 0.79 mg/dL (0.60-1.30); GLOMERULAR FILTR. RATE CALC > 60 mL/min (>60); GLUCOSE,RANDOM 79 mg/dL (70-110); POTASSIUM 3.3 mmol/L (3.5-5.1); SODIUM SERUM 141 mmol/L (136-145); UREA NITROGEN, BLOOD 7 mg/dL (7-18)
[2019-03-31 07:26] VITALS: BP 133/81
[2019-03-31] MEDS: DOCUSATE SODIUM 100 MG CAPSULE PO SCH ×2 (09:00→20:46)
[2019-03-31] MEDS: POTASSIUM CHLORIDE 20 MEQ ER TABLET PO PRN (09:49)
[2019-03-31] MEDS: HEPARIN SODIUM,PORCINE 5,000 UNITS/ML VIAL SQ SCH ×3 (09:50→23:11)
[2019-03-31 10:52] VITALS: BP 131/65
[2019-03-31] MEDS ORDERED: MAGNESIUM SULFATE 2 GM, MVI, ADULT NO.1 WITH VIT K 10 ML, THIAMINE HCL 100 MG, FOLIC AC... IV ONE ×5 (13:45)
[2019-03-31] MEDS ORDERED: POTASSIUM CHL 10 MEQ/WATER 50 ML IV PRN (13:45)
[2019-03-31] MEDS ORDERED: POTASSIUM CHLORIDE 20 MEQ ER TABLET PO PRN (13:45)
[2019-03-31 14:24] VITALS: BP 156/92
[2019-03-31] MEDS: LISINOPRIL 5 MG TABLET PO SCH (14:29)
[2019-03-31] MEDS: PANTOPRAZOLE SODIUM 40 MG DR TABLET PO SCH (14:30)
[2019-03-31 19:42] VITALS: BP 126/67
[2019-04-01] MEDS: NITROGLYCERIN 2% (1 GM=INCH) PACKET TP SCH ×4 (00:01→23:50)
[2019-04-01 00:15] VITALS: BP 117/83
[2019-04-01 04:33] VITALS: BP 130/84
[2019-04-01 07:16] VITALS: BP 122/74
[2019-04-01] MEDS: HEPARIN SODIUM,PORCINE 5,000 UNITS/ML VIAL SQ SCH ×3 (08:00→23:18)
[2019-04-01] MEDS: LISINOPRIL 5 MG TABLET PO SCH (08:11)
[2019-04-01] MEDS: PANTOPRAZOLE SODIUM 40 MG DR TABLET PO SCH (08:11)
[2019-04-01] MEDS: DOCUSATE SODIUM 100 MG CAPSULE PO SCH ×2 (08:11→19:55)
[2019-04-01] MEDS: MORPHINE SULFATE 2 MG/ML SYRINGE IVP PRN (09:12)
[2019-04-01] MEDS: HYDROCODONE/ACETAMINOPHEN 5-325 MG TABLET PO PRN (18:38)
[2019-04-01 19:39] LABS: BASOPHILS % (AUTO) 0.8 % (0.0-2.0); EOSINOPHILS % (AUTO) 5.5 % (1.0-6.0); HEMATOCRIT 28.9 % (41-53); HEMOGLOBIN 9.7 g/dL (13.5-17.5); LYMPHOCYTES # (AUTO) 0.7 K/uL (1.0-4.8); MEAN CORPUSCULAR HGB CONC 33.6 G/dL (31.0-37.0); MEAN CORPUSCULAR VOLUME 95 fL (80-100); MONOCYTES # (AUTO) 0.4 K/uL (0.1-1.0); MONOCYTES % (AUTO) 12.4 % (2.0-9.0); NEUTROPHILS % (AUTO) 61.3 % (40.0-70.0); RED BLOOD CELL COUNT(AUTO) 3.04 MIL/uL (4.50-5.90); RED CELL DISTRIBUTION WIDTH 23.1 % (11.5-14.5)
[2019-04-01 19:59] LABS: PLATELET MORPHOLOGY COMMENT LARGE PLTS PRESENT
[2019-04-01 20:00] LABS: PLATELET COUNT (AUTO) 107 K/uL (150-450)
[2019-04-01 20:09] VITALS: BP 155/95
[2019-04-01 20:19] LABS: ANION GAP 9 mmol/L (8-16); CALCIUM, TOTAL 7.8 mg/dL (8.8-10.5); CARBON DIOXIDE 24 mmol/L (22-29); CHLORIDE 106 mmol/L (98-107); CREATININE 0.83 mg/dL (0.60-1.30); GLOMERULAR FILTR. RATE CALC > 60 mL/min (>60); GLUCOSE,RANDOM 94 mg/dL (70-110); POTASSIUM 4.2 mmol/L (3.5-5.1); SODIUM SERUM 139 mmol/L (136-145); UREA NITROGEN, BLOOD 8 mg/dL (7-18)
[2019-04-01] MEDS: ZOLPIDEM TARTRATE 5 MG TABLET PO PRN (23:51)
[2019-04-02] MEDS: HYDROCODONE/ACETAMINOPHEN 5-325 MG TABLET PO PRN ×4 (01:14→21:30)
[2019-04-02 01:16] VITALS: BP 142/68
[2019-04-02 05:59] VITALS: BP 142/62
[2019-04-02 06:51] LABS: ANION GAP 5 mmol/L (8-16); CALCIUM, TOTAL 7.9 mg/dL (8.8-10.5); CARBON DIOXIDE 24 mmol/L (22-29); CHLORIDE 108 mmol/L (98-107); CREATININE 0.75 mg/dL (0.60-1.30); GLOMERULAR FILTR. RATE CALC > 60 mL/min (>60); GLUCOSE,RANDOM 90 mg/dL (70-110); POTASSIUM 3.8 mmol/L (3.5-5.1); SODIUM SERUM 137 mmol/L (136-145); UREA NITROGEN, BLOOD 7 mg/dL (7-18)
[2019-04-02] MEDS: HEPARIN SODIUM,PORCINE 5,000 UNITS/ML VIAL SQ SCH ×2 (08:00→15:31)
[2019-04-02] MEDS: DOCUSATE SODIUM 100 MG CAPSULE PO SCH ×2 (08:05→21:00)
[2019-04-02] MEDS: LISINOPRIL 5 MG TABLET PO SCH (08:09)
[2019-04-02] MEDS: NITROGLYCERIN 2% (1 GM=INCH) PACKET TP SCH ×2 (08:09→15:47)
[2019-04-02] MEDS: PANTOPRAZOLE SODIUM 40 MG DR TABLET PO SCH (08:09)
[2019-04-02 08:23] VITALS: BP 130/90
[2019-04-02 10:04] LABS: BASOPHILS % (AUTO) 1.4 % (0.0-2.0); EOSINOPHILS % (AUTO) 6.3 % (1.0-6.0); HEMATOCRIT 24.4 % (41-53); HEMOGLOBIN 8.7 g/dL (13.5-17.5); LYMPHOCYTES # (AUTO) 0.6 K/uL (1.0-4.8); LYMPHOCYTES % (AUTO) 21.7 % (22.0-44.0); MEAN CORPUSCULAR HEMOGLOBIN 35.3 pg (26.0-34.0); MEAN CORPUSCULAR HGB CONC 35.6 G/dL (31.0-37.0); MEAN CORPUSCULAR VOLUME 99 fL (80-100); MONOCYTES # (AUTO) 0.3 K/uL (0.1-1.0); MONOCYTES % (AUTO) 10.9 % (2.0-9.0); NEUTROPHILS # (AUTO) 1.6 K/uL (1.8-7.7); NEUTROPHILS % (AUTO) 59.7 % (40.0-70.0); PLATELET COUNT (AUTO) 86 K/uL (150-450); RED BLOOD CELL COUNT(AUTO) 2.45 MIL/uL (4.50-5.90); RED CELL DISTRIBUTION WIDTH 22.7 % (11.5-14.5)
[2019-04-02 20:12] VITALS: BP 139/90
[2019-04-03] VITALS (7 sets, daily range): BP systolic 113–141; BP diastolic 72–87
[2019-04-03] MEDS: ZOLPIDEM TARTRATE 5 MG TABLET PO PRN (00:29)
[2019-04-03] MEDS: MORPHINE SULFATE 2 MG/ML SYRINGE IVP PRN (00:30)
[2019-04-03] MEDS: HEPARIN SODIUM,PORCINE 5,000 UNITS/ML VIAL SQ SCH ×3 (08:00→15:12)
[2019-04-03] MEDS: DOCUSATE SODIUM 100 MG CAPSULE PO SCH ×2 (08:32→21:00)
[2019-04-03] MEDS: LISINOPRIL 5 MG TABLET PO SCH (08:47)
[2019-04-03] MEDS: PANTOPRAZOLE SODIUM 40 MG DR TABLET PO SCH (08:47)
[2019-04-03] MEDS: NITROGLYCERIN 2% (1 GM=INCH) PACKET TP SCH ×3 (08:48→16:57)
[2019-04-03] MEDS: HYDROCODONE/ACETAMINOPHEN 5-325 MG TABLET PO PRN (23:54)
[2019-04-04 07:27] VITALS: BP 124/85
[2019-04-04] MEDS: NITROGLYCERIN 2% (1 GM=INCH) PACKET TP SCH ×3 (08:00→16:00)
[2019-04-04] MEDS: HEPARIN SODIUM,PORCINE 5,000 UNITS/ML VIAL SQ SCH ×3 (08:00→16:00)
[2019-04-04] MEDS: PANTOPRAZOLE SODIUM 40 MG DR TABLET PO SCH (08:28)
[2019-04-04] MEDS: HYDROCODONE/ACETAMINOPHEN 5-325 MG TABLET PO PRN ×2 (08:28→14:49)
[2019-04-04] MEDS: LISINOPRIL 5 MG TABLET PO SCH (08:28)
[2019-04-04] MEDS: DOCUSATE SODIUM 100 MG CAPSULE PO SCH ×2 (08:29→21:00)
[2019-04-04] MEDS ORDERED: PERMETHRIN 5% 60 GM CREAM TP ONE (11:45)
[2019-04-04 11:56] VITALS: BP 123/82
[2019-04-04 16:08] VITALS: BP 134/80
[2019-04-04 19:43] VITALS: BP 145/100
[2019-04-04 23:30] VITALS: BP 143/83
[2019-04-05] MEDS: NITROGLYCERIN 2% (1 GM=INCH) PACKET TP SCH ×4 (00:39→23:26)
[2019-04-05 04:00] VITALS: BP 146/84
[2019-04-05] MEDS: DOCUSATE SODIUM 100 MG CAPSULE PO SCH ×2 (08:19→20:36)
[2019-04-05] MEDS: PANTOPRAZOLE SODIUM 40 MG DR TABLET PO SCH (08:19)
[2019-04-05] MEDS: LISINOPRIL 5 MG TABLET PO SCH (08:19)
[2019-04-05] MEDS: HEPARIN SODIUM,PORCINE 5,000 UNITS/ML VIAL SQ SCH ×4 (08:19→23:28)
[2019-04-05] MEDS: HYDROCODONE/ACETAMINOPHEN 5-325 MG TABLET PO PRN ×2 (08:28→17:15)
[2019-04-05 08:36] VITALS: BP 151/91
[2019-04-05 11:31] VITALS: BP 107/65
[2019-04-05 16:25] VITALS: BP 115/61
[2019-04-05 20:35] VITALS: BP 142/87
[2019-04-05 23:28] VITALS: BP 147/76
[2019-04-06 04:39] VITALS: BP 142/77
[2019-04-06] MEDS: NITROGLYCERIN 2% (1 GM=INCH) PACKET TP SCH ×3 (08:00→23:40)
[2019-04-06] MEDS: HEPARIN SODIUM,PORCINE 5,000 UNITS/ML VIAL SQ SCH ×2 (08:10→16:00)
[2019-04-06] MEDS: LISINOPRIL 5 MG TABLET PO SCH (08:10)
[2019-04-06] MEDS: PANTOPRAZOLE SODIUM 40 MG DR TABLET PO SCH (08:10)
[2019-04-06] MEDS: DOCUSATE SODIUM 100 MG CAPSULE PO SCH ×2 (08:11→20:37)
[2019-04-06 08:15] VITALS: BP 159/102
[2019-04-06] MEDS: HYDROCODONE/ACETAMINOPHEN 5-325 MG TABLET PO PRN ×2 (08:28→20:40)
[2019-04-06 11:28] VITALS: BP 146/94
[2019-04-06 17:06] VITALS: BP 139/86
[2019-04-06 20:00] VITALS: BP 143/85
[2019-04-06 23:37] VITALS: BP 133/82
[2019-04-07] MEDS: HYDROCODONE/ACETAMINOPHEN 5-325 MG TABLET PO PRN ×2 (02:10→08:35)
[2019-04-07 04:50] VITALS: BP 131/90
[2019-04-07] MEDS: DOCUSATE SODIUM 100 MG CAPSULE PO SCH (08:27)
[2019-04-07] MEDS: HEPARIN SODIUM,PORCINE 5,000 UNITS/ML VIAL SQ SCH ×3 (08:27→16:00)
[2019-04-07] MEDS: NITROGLYCERIN 2% (1 GM=INCH) PACKET TP SCH ×2 (08:27→16:00)
[2019-04-07] MEDS: PANTOPRAZOLE SODIUM 40 MG DR TABLET PO SCH (08:28)
[2019-04-07] MEDS: LISINOPRIL 5 MG TABLET PO SCH (08:28)
[2019-04-07 08:35] VITALS: BP 123/72
[2019-04-07 12:52] VITALS: BP 111/67
[2019-04-07 15:18] VITALS: BP 124/68
== END 2019-04-07 16:00 | disposition home or self-care (01) | DRG 392 ==
LOC: EMS 20:12 → 5S 03-30 06:00 → 6N 04-03 18:35
PROVIDERS: ADMIT Internal Medicine; ATTEND Internal Medicine
DX: K29.20 Alcoholic gastritis without bleeding (principal); E44.0 Moderate protein-calorie malnutrition; F10.229 Alcohol dependence with intoxication, unspecified; E87.6 Hypokalemia; K21.9 Gastro-esophageal reflux disease without esophagitis; F90.9 Attention-deficit hyperactivity disorder, unspecified type; B86 Scabies; F17.210 Nicotine dependence, cigarettes, uncomplicated; F43.10 Post-traumatic stress disorder, unspecified; G89.4 Chronic pain syndrome; I12.9 Hypertensive chronic kidney disease with stage 1 through stage 4 chronic kidney disease, or unspecified chronic kidney disease; J44.9 Chronic obstructive pulmonary disease, unspecified; Z96.659 Presence of unspecified artificial knee joint; F32.9 Major depressive disorder, single episode, unspecified; K43.9 Ventral hernia without obstruction or gangrene; K70.30 Alcoholic cirrhosis of liver without ascites; M06.9 Rheumatoid arthritis, unspecified; N18.9 Chronic kidney disease, unspecified; Z91.19 Patient's noncompliance with other medical treatment and regimen; Z59.0 Homelessness; Z88.1 Allergy status to other antibiotic agents; I25.2 Old myocardial infarction; Z88.8 Allergy status to other drugs, medicaments and biological substances; Z68.26 Body mass index [BMI] 26.0-26.9, adult
CPT/HCPCS: 74022; 83036; 84132; 93005; 93306; 97116; 97162; 97530; G0480; J1644; J2270; J2405; J3411; J3475; J3490; J7030

== ENCOUNTER 2019-04-09 11:17 | Emergency (ER) | payer MEDICARE, OTHER ==
[~2019-04-09] VITALS: Ht 172.7 cm; Wt 81.8 kg
[~2019-04-09 11:17] MED LIST changes: -DIPH25 PO; -HYDR25TA PO
[2019-04-09] MEDS ORDERED: MAGNESIUM SULFATE 2 GM, MVI, ADULT NO.1 WITH VIT K 10 ML, THIAMINE HCL 100 MG, FOLIC AC... IV ONE ×5 (11:50)
[2019-04-09 12:35] LABS: ANION GAP 10 mmol/L (8-16); CALCIUM, TOTAL 7.7 mg/dL (8.8-10.5); CARBON DIOXIDE 23 mmol/L (22-29); CHLORIDE 114 mmol/L (98-107); CREATININE 0.78 mg/dL (0.60-1.30); GLOMERULAR FILTR. RATE CALC > 60 mL/min (>60); GLUCOSE,RANDOM 99 mg/dL (70-110); POTASSIUM 3.6 mmol/L (3.5-5.1); SODIUM SERUM 147 mmol/L (136-145); UREA NITROGEN, BLOOD 10 mg/dL (7-18)
[2019-04-09 12:41] LABS: ALANINE AMINOTRANSFERASE 46 U/L (12-78); ALBUMIN 2.3 g/dL (3.4-5.0); ALKALINE PHOSPHATASE 155 U/L (46-116); ASPARTATE AMINOTRANSFERASE 80 U/L (15-37); BILIRUBIN,TOTAL 1.1 mg/dL (0.1-1.0)
[2019-04-09 13:38] LABS: BASOPHILS % (AUTO) 1.3 % (0.0-2.0); EOSINOPHILS % (AUTO) 4.1 % (1.0-6.0); HEMATOCRIT 28.8 % (41-53); LYMPHOCYTES # (AUTO) 1.6 K/uL (1.0-4.8); LYMPHOCYTES % (AUTO) 42.6 % (22.0-44.0); MEAN CORPUSCULAR HEMOGLOBIN 26.7 pg (26.0-34.0); MEAN CORPUSCULAR HGB CONC 31.1 G/dL (31.0-37.0); MEAN CORPUSCULAR VOLUME 86 fL (80-100); MONOCYTES # (AUTO) 0.5 K/uL (0.1-1.0); MONOCYTES % (AUTO) 14.5 % (2.0-9.0); NEUTROPHILS # (AUTO) 1.4 K/uL (1.8-7.7); NEUTROPHILS % (AUTO) 37.5 % (40.0-70.0); PLATELET COUNT (AUTO) 112 K/uL (150-450); RED BLOOD CELL COUNT(AUTO) 3.37 MIL/uL (4.50-5.90); RED CELL DISTRIBUTION WIDTH 24.1 % (11.5-14.5)
[2019-04-09 15:30] VITALS: BP 110/59
== END 2019-04-09 16:09 | disposition home or self-care (01) ==
LOC: EMS 11:19
DX: F10.229 Alcohol dependence with intoxication, unspecified (principal); I10 Essential (primary) hypertension; J44.9 Chronic obstructive pulmonary disease, unspecified; M06.9 Rheumatoid arthritis, unspecified; F90.9 Attention-deficit hyperactivity disorder, unspecified type; F17.210 Nicotine dependence, cigarettes, uncomplicated; F11.90 Opioid use, unspecified, uncomplicated; Z79.899 Other long term (current) drug therapy; Z98.890 Other specified postprocedural states; Z88.8 Allergy status to other drugs, medicaments and biological substances; Z88.6 Allergy status to analgesic agent; Z88.1 Allergy status to other antibiotic agents; Y90.7 Blood alcohol level of 200-239 mg/100 ml
CPT/HCPCS: 36415; 80053; 85025; 96365; 96366; 99283; 99406; G0480; J3411; J3475; J3490 ×2; J7030

== ENCOUNTER 2019-04-24 14:07 | Emergency (ER) | payer MEDICARE, OTHER ==
[~2019-04-24] VITALS: Ht 167.6 cm; Wt 74.0 kg
[2019-04-24 15:44] LABS: BASOPHILS % (AUTO) 1.2 % (0.0-2.0); EOSINOPHILS % (AUTO) 5.2 % (1.0-6.0); HEMATOCRIT 26.8 % (41-53); HEMOGLOBIN 8.5 g/dL (13.5-17.5); LYMPHOCYTES % (AUTO) 32.2 % (22.0-44.0); MEAN CORPUSCULAR HEMOGLOBIN 30.1 pg (26.0-34.0); MEAN CORPUSCULAR HGB CONC 31.8 G/dL (31.0-37.0); MEAN CORPUSCULAR VOLUME 95 fL (80-100); MONOCYTES # (AUTO) 0.5 K/uL (0.1-1.0); MONOCYTES % (AUTO) 16.3 % (2.0-9.0); NEUTROPHILS # (AUTO) 1.3 K/uL (1.8-7.7); NEUTROPHILS % (AUTO) 45.1 % (40.0-70.0); PLATELET COUNT (AUTO) 101 K/uL (150-450); RED BLOOD CELL COUNT(AUTO) 2.83 MIL/uL (4.50-5.90); RED CELL DISTRIBUTION WIDTH 24.2 % (11.5-14.5)
[2019-04-24 15:53] LABS: ANION GAP 7 mmol/L (8-16); CALCIUM, TOTAL 7.7 mg/dL (8.8-10.5); CARBON DIOXIDE 26 mmol/L (22-29); CHLORIDE 112 mmol/L (98-107); CREATININE 0.72 mg/dL (0.60-1.30); GLOMERULAR FILTR. RATE CALC > 60 mL/min (>60); GLUCOSE,RANDOM 87 mg/dL (70-110); SODIUM SERUM 145 mmol/L (136-145); UREA NITROGEN, BLOOD 10 mg/dL (7-18)
[2019-04-24 16:01] LABS: ALANINE AMINOTRANSFERASE 37 U/L (12-78); ALBUMIN 2.1 g/dL (3.4-5.0); ALKALINE PHOSPHATASE 139 U/L (46-116); ASPARTATE AMINOTRANSFERASE 71 U/L (15-37); BILIRUBIN,TOTAL 1.2 mg/dL (0.1-1.0); TOTAL PROTEIN, SERUM 6.4 g/dL (6.4-8.2)
[2019-04-24 16:13] LABS: PLATELET MORPHOLOGY COMMENT DECREASED
[2019-04-24 17:14] LABS: APPEARANCE,URINE CLEAR (CLEAR); BILIRUBIN,URINE NEGATIVE (NEGATIVE); GLUCOSE, URINE (UA) NEGATIVE (NEGATIVE); KETONES,URINE NEGATIVE (NEGATIVE); LEUKOCYTE ESTERASE ,URINE TRACE (NEGATIVE); NITRATE,URINE NEGATIVE (NEGATIVE); OCCULT BLOOD,URINE NEGATIVE (NEGATIVE); PROTEIN,URINE NEGATIVE (NEGATIVE)
[2019-04-24 17:45] LABS: BACTERIA,URINE Rare /HPF (None Seen); RBC,URINE 0-2 /HPF (0-2); SQUAMOUS EPITHELIAL CELL,UR Rare /LPF (None Seen)
[2019-04-24] MEDS ORDERED: MAGNESIUM SULFATE 2 GM, MVI, ADULT NO.1 WITH VIT K 10 ML, THIAMINE HCL 100 MG, FOLIC AC... IV ONE ×5 (17:45)
[2019-04-24] MEDS ORDERED: POTASSIUM CHLORIDE 20 MEQ ER TABLET PO ONE (17:45)
[2019-04-24 17:51] LABS: AMPHET/METH SCREEN,URINE NEGATIVE (NEGATIVE); BARBITURATE SCREEN, URINE NEGATIVE (NEGATIVE); BENZODIAZEPINES SCREEN,URINE NEGATIVE (NEGATIVE); CANNABINOID SCREEN,URINE NEGATIVE (NEGATIVE); COCAINE SCREEN,URINE NEGATIVE (NEGATIVE); METHADONE SCREEN, URINE NEGATIVE (NEGATIVE); OPIATE SCREEN,URINE NEGATIVE (NEGATIVE)
[2019-04-24 17:52] LABS: PHENCYCLIDINE SCREEN,URINE NEGATIVE (NEGATIVE)
[2019-04-24] MEDS ORDERED: MAG HYDROX/AL HYDROX/SIMETH 30 ML SUSP UDCUP PO ONE (18:00)
[2019-04-24] MEDS ORDERED: MAG HYDROX/AL HYDROX/SIMETH ES 30 ML SUSPENSION UDCUP PO ONE (20:45)
[2019-04-24] MEDS ORDERED: IBUPROFEN 200 MG TABLET PO ONE (20:45)
[2019-04-24 20:53] VITALS: BP 153/94
== END 2019-04-24 21:33 | disposition home or self-care (01) ==
LOC: EMS 14:11
DX: F10.129 Alcohol abuse with intoxication, unspecified (principal); E87.6 Hypokalemia; F32.9 Major depressive disorder, single episode, unspecified; I10 Essential (primary) hypertension; J44.9 Chronic obstructive pulmonary disease, unspecified; Z79.899 Other long term (current) drug therapy; Z88.8 Allergy status to other drugs, medicaments and biological substances; Y90.6 Blood alcohol level of 120-199 mg/100 ml
CPT/HCPCS: 36415; 80053; 80307; 81001; 85025; 96365; 96366; 99284; G0480; J3411; J3475; J3490 ×2; J7030

== ENCOUNTER 2019-04-25 01:38 | Emergency (ER) | payer MEDICARE, OTHER ==
[~2019-04-25] VITALS: Ht 172.7 cm; Wt 74.5 kg
[2019-04-25 02:19] VITALS: BP 152/109
[2019-04-25 04:37] LABS: BASOPHILS % (AUTO) 1.1 % (0.0-2.0); HEMOGLOBIN 9.4 g/dL (13.5-17.5); LYMPHOCYTES # (AUTO) 0.9 K/uL (1.0-4.8); LYMPHOCYTES % (AUTO) 29.3 % (22.0-44.0); MEAN CORPUSCULAR HEMOGLOBIN 36.3 pg (26.0-34.0); MEAN CORPUSCULAR HGB CONC 36.3 G/dL (31.0-37.0); MEAN CORPUSCULAR VOLUME 100 fL (80-100); MONOCYTES # (AUTO) 0.5 K/uL (0.1-1.0); NEUTROPHILS # (AUTO) 1.6 K/uL (1.8-7.7); NEUTROPHILS % (AUTO) 50.6 % (40.0-70.0); PLATELET COUNT (AUTO) 110 K/uL (150-450); RED CELL DISTRIBUTION WIDTH 23.8 % (11.5-14.5)
[2019-04-25 04:47] LABS: ANION GAP 7 mmol/L (8-16); CARBON DIOXIDE 26 mmol/L (22-29); CHLORIDE 110 mmol/L (98-107); CREATININE 0.78 mg/dL (0.60-1.30); GLOMERULAR FILTR. RATE CALC > 60 mL/min (>60); GLUCOSE,RANDOM 118 mg/dL (70-110); POTASSIUM 3.4 mmol/L (3.5-5.1); SODIUM SERUM 143 mmol/L (136-145); UREA NITROGEN, BLOOD 8 mg/dL (7-18)
[2019-04-25 04:53] LABS: ALANINE AMINOTRANSFERASE 34 U/L (12-78); ALBUMIN 2.3 g/dL (3.4-5.0); ALKALINE PHOSPHATASE 153 U/L (46-116); ASPARTATE AMINOTRANSFERASE 76 U/L (15-37); BILIRUBIN,TOTAL 1.8 mg/dL (0.1-1.0); LIPASE 219 U/L (73-393); TOTAL PROTEIN, SERUM 7.2 g/dL (6.4-8.2)
== END 2019-04-25 04:30 | disposition left against medical advice (07) ==
LOC: EMS 01:39
DX: R10.9 Unspecified abdominal pain (principal); Z53.21 Procedure and treatment not carried out due to patient leaving prior to being seen by health care provider
CPT/HCPCS: 36415; 80053; 83690; 84484; 85025; G0480

== ENCOUNTER 2019-06-10 02:22 | Inpatient (IN) | payer MEDICARE, OTHER ==
[~2019-06-10] VITALS: Ht 175.3 cm; Wt 72.2 kg
[2019-06-10 02:57] LABS: BASOPHILS % (AUTO) 0.9 % (0.0-2.0); HEMATOCRIT 31.6 % (41-53); HEMOGLOBIN 11.4 g/dL (13.5-17.5); LYMPHOCYTES # (AUTO) 1.6 K/uL (1.0-4.8); LYMPHOCYTES % (AUTO) 28.4 % (22.0-44.0); MEAN CORPUSCULAR HEMOGLOBIN 38.8 pg (26.0-34.0); MEAN CORPUSCULAR HGB CONC 35.9 G/dL (31.0-37.0); MEAN CORPUSCULAR VOLUME 108 fL (80-100); MONOCYTES # (AUTO) 0.7 K/uL (0.1-1.0); MONOCYTES % (AUTO) 12.7 % (2.0-9.0); NEUTROPHILS # (AUTO) 3.2 K/uL (1.8-7.7); PLATELET COUNT (AUTO) 142 K/uL (150-450); RED BLOOD CELL COUNT(AUTO) 2.93 MIL/uL (4.50-5.90); RED CELL DISTRIBUTION WIDTH 19.5 % (11.5-14.5)
[2019-06-10 03:13] LABS: ANION GAP 11 mmol/L (8-16); CALCIUM, TOTAL 8.8 mg/dL (8.8-10.5); CARBON DIOXIDE 25 mmol/L (22-29); CHLORIDE 106 mmol/L (98-107); CREATININE 0.77 mg/dL (0.60-1.30); GLOMERULAR FILTR. RATE CALC > 60 mL/min (>60); GLUCOSE,RANDOM 97 mg/dL (70-110); POTASSIUM 3.7 mmol/L (3.5-5.1); SODIUM SERUM 142 mmol/L (136-145); UREA NITROGEN, BLOOD 9 mg/dL (7-18)
[2019-06-10 03:19] LABS: ALANINE AMINOTRANSFERASE 37 U/L (12-78); ALBUMIN 3.7 g/dL (3.4-5.0); ALKALINE PHOSPHATASE 118 U/L (46-116); ASPARTATE AMINOTRANSFERASE 64 U/L (15-37); BILIRUBIN,TOTAL 2.1 mg/dL (0.1-1.0); CREATINE KINASE, TOTAL ONLY 53 U/L (39-308); TOTAL PROTEIN, SERUM 7.9 g/dL (6.4-8.2)
[2019-06-10] MEDS ORDERED: MAGNESIUM OXIDE 400 MG TABLET PO ONE (04:00)
[2019-06-10] MEDS ORDERED: AZITHROMYCIN 500 MG/NS 250 ML IV ONE (04:15)
[2019-06-10] MEDS ORDERED: CefTRIAXone 1 GM/DEXTROSE 50 ML IV ONE (04:15)
[2019-06-10] MEDS ORDERED: ACETAMINOPHEN 500 MG TABLET PO ONE (05:00)
[2019-06-10] MEDS ORDERED: PB/HYOSCY/ATR/SCOP/LIDO/MAALOX 55 ML BOTTLE PO ONE (05:15)
[2019-06-10] MEDS ORDERED: MAGNESIUM HYDROXIDE SUSPENSION 30 ML UDCUP PO PRN (06:45)
[2019-06-10] MEDS ORDERED: ONDANSETRON HCL 4 MG/2 ML VIAL IVP PRN (06:45)
[2019-06-10] MEDS ORDERED: 0.9% SODIUM CHLORIDE 10 ML SYRINGE IVP PRN (06:45)
[2019-06-10] MEDS ORDERED: ACETAMINOPHEN 325 MG TABLET PO PRN (06:45)
[2019-06-10 08:29] VITALS: BP 149/97
[2019-06-10] MEDS: DOCUSATE SODIUM 100 MG CAPSULE PO SCH ×2 (09:00→20:26)
[2019-06-10 12:26] VITALS: BP 163/98
[2019-06-10] MEDS: FAMOTIDINE 10 MG/ML 2 ML VIAL IVP SCH (14:46)
[2019-06-10] MEDS: PB/HYOSCY/ATR/SCOP/LIDO/MAALOX 55 ML BOTTLE PO PRN (15:00)
[2019-06-10 15:57] VITALS: BP 153/92
[2019-06-10] MEDS ORDERED: INFLUENZA VIRUS VACCINE QVS 2019-20 (3YR+)/PF 60 MCG/0.5 ML SYRINGE IM ONE (16:45)
[2019-06-10 19:32] VITALS: BP 140/81
[2019-06-10] MEDS: OxyCODONE HCL/ACETAMINOPHEN 5-325 MG TABLET PO PRN (20:26)
[2019-06-10] MEDS ORDERED: 0.9% SODIUM CHLORIDE 5 ML NEB SOLUTION NEB ONE (21:24)
[2019-06-10] MEDS: ALBUTEROL SULFATE 2.5 MG/0.5 ML NEB SOLUTION NEB PRN (21:28)
[2019-06-10] MEDS: IPRATROPIUM BROMIDE 0.5 MG/2.5 ML NEB SOLUTION NEB PRN (21:29)
[2019-06-10] MEDS: ChlordiazePOXIDE HCL 25 MG CAPSULE PO SCH (22:03)
[2019-06-10 23:23] VITALS: BP 144/91
[2019-06-11] MEDS: PB/HYOSCY/ATR/SCOP/LIDO/MAALOX 55 ML BOTTLE PO PRN ×3 (00:11→17:53)
[2019-06-11] MEDS ORDERED: SODIUM CHLORIDE 0.9% 250 ML IV ONE (04:02)
[2019-06-11] MEDS: CefTRIAXone 1 GM/DEXTROSE 50 ML IV SCH (04:10)
[2019-06-11] MEDS: AZITHROMYCIN 500 MG/NS 250 ML IV SCH (05:16)
[2019-06-11 05:18] VITALS: BP 130/74
[2019-06-11 07:31] LABS: ANION GAP 7 mmol/L (8-16); CALCIUM, TOTAL 8.7 mg/dL (8.8-10.5); CARBON DIOXIDE 25 mmol/L (22-29); CHLORIDE 105 mmol/L (98-107); CREATININE 0.64 mg/dL (0.60-1.30); GLOMERULAR FILTR. RATE CALC > 60 mL/min (>60); GLUCOSE,RANDOM 95 mg/dL (70-110); POTASSIUM 4.2 mmol/L (3.5-5.1); SODIUM SERUM 137 mmol/L (136-145); UREA NITROGEN, BLOOD 14 mg/dL (7-18)
[2019-06-11 07:49] LABS: BASOPHILS % (AUTO) 1.2 % (0.0-2.0); EOSINOPHILS % (AUTO) 1.9 % (1.0-6.0); HEMOGLOBIN 9.9 g/dL (13.5-17.5); LYMPHOCYTES # (AUTO) 2.1 K/uL (1.0-4.8); LYMPHOCYTES % (AUTO) 37.1 % (22.0-44.0); MEAN CORPUSCULAR HGB CONC 35.2 G/dL (31.0-37.0); MEAN CORPUSCULAR VOLUME 108 fL (80-100); MONOCYTES % (AUTO) 17.2 % (2.0-9.0); NEUTROPHILS # (AUTO) 2.4 K/uL (1.8-7.7); NEUTROPHILS % (AUTO) 42.6 % (40.0-70.0); PLATELET COUNT (AUTO) 115 K/uL (150-450); RED CELL DISTRIBUTION WIDTH 19.7 % (11.5-14.5)
[2019-06-11] MEDS: FAMOTIDINE 10 MG/ML 2 ML VIAL IVP SCH (08:20)
[2019-06-11] MEDS: ChlordiazePOXIDE HCL 25 MG CAPSULE PO SCH ×2 (08:20→20:18)
[2019-06-11] MEDS: DOCUSATE SODIUM 100 MG CAPSULE PO SCH ×2 (08:20→20:18)
[2019-06-11 08:23] VITALS: BP 145/88
[2019-06-11 12:13] VITALS: BP 147/88
[2019-06-11 15:43] VITALS: BP 152/98
[2019-06-11] MEDS ORDERED: MAGNESIUM SULFATE 4 GM/WATER 100 ML IV PRN (16:00)
[2019-06-11] MEDS: MAGNESIUM SULFATE 2 GM/WATER 50 ML IV PRN (17:41)
[2019-06-11 20:09] VITALS: BP 153/98
[2019-06-12 01:19] VITALS: BP 148/90
[2019-06-12] MEDS: PB/HYOSCY/ATR/SCOP/LIDO/MAALOX 55 ML BOTTLE PO PRN ×2 (02:19→21:24)
[2019-06-12] MEDS: IPRATROPIUM BROMIDE 0.5 MG/2.5 ML NEB SOLUTION NEB PRN (02:28)
[2019-06-12] MEDS: ALBUTEROL SULFATE 2.5 MG/0.5 ML NEB SOLUTION NEB PRN (02:28)
[2019-06-12] MEDS: CefTRIAXone 1 GM/DEXTROSE 50 ML IV SCH (04:40)
[2019-06-12] MEDS: AZITHROMYCIN 500 MG/NS 250 ML IV SCH (05:28)
[2019-06-12 05:39] VITALS: BP 140/68
[2019-06-12 07:45] VITALS: BP 144/85
[2019-06-12] MEDS: ChlordiazePOXIDE HCL 25 MG CAPSULE PO SCH ×2 (08:46→21:23)
[2019-06-12] MEDS: OxyCODONE HCL/ACETAMINOPHEN 5-325 MG TABLET PO PRN ×2 (08:46→15:09)
[2019-06-12] MEDS: FAMOTIDINE 10 MG/ML 2 ML VIAL IVP SCH (08:46)
[2019-06-12] MEDS: DOCUSATE SODIUM 100 MG CAPSULE PO SCH ×2 (08:46→21:23)
[2019-06-12] MEDS: MAGNESIUM OXIDE 400 MG TABLET PO PRN ×3 (08:52→21:23)
[2019-06-12 12:08] VITALS: BP 130/74
[2019-06-12 16:08] VITALS: BP 144/86
[2019-06-13 00:32] VITALS: BP 139/83
[2019-06-13 05:40] VITALS: BP 141/73
[2019-06-13] MEDS: CefTRIAXone 1 GM/DEXTROSE 50 ML IV SCH (05:40)
[2019-06-13] MEDS: AZITHROMYCIN 500 MG/NS 250 ML IV SCH (06:34)
[2019-06-13] MEDS: OxyCODONE HCL/ACETAMINOPHEN 5-325 MG TABLET PO PRN (09:12)
[2019-06-13] MEDS: ChlordiazePOXIDE HCL 25 MG CAPSULE PO SCH ×2 (09:12→21:38)
[2019-06-13] MEDS: DOCUSATE SODIUM 100 MG CAPSULE PO SCH ×2 (09:12→21:38)
[2019-06-13] MEDS: FAMOTIDINE 10 MG/ML 2 ML VIAL IVP SCH (09:13)
[2019-06-13 10:24] VITALS: BP 135/67
[2019-06-13] MEDS: MAGNESIUM SULFATE 2 GM/WATER 50 ML IV PRN (14:57)
[2019-06-13] MEDS: PB/HYOSCY/ATR/SCOP/LIDO/MAALOX 55 ML BOTTLE PO PRN (15:05)
[2019-06-13 15:28] VITALS: BP 139/91
[2019-06-13 19:32] VITALS: BP 153/95
[2019-06-14 00:43] VITALS: BP 140/96
[2019-06-14] MEDS: OxyCODONE HCL/ACETAMINOPHEN 5-325 MG TABLET PO PRN ×2 (01:30→08:30)
[2019-06-14 04:00] VITALS: BP 143/93
[2019-06-14] MEDS: CefTRIAXone 1 GM/DEXTROSE 50 ML IV SCH (04:08)
[2019-06-14] MEDS: AZITHROMYCIN 500 MG/NS 250 ML IV SCH (04:42)
[2019-06-14] MEDS: ALBUTEROL SULFATE 2.5 MG/0.5 ML NEB SOLUTION NEB PRN (07:00)
[2019-06-14] MEDS: IPRATROPIUM BROMIDE 0.5 MG/2.5 ML NEB SOLUTION NEB PRN (07:00)
[2019-06-14 08:09] VITALS: BP 141/76
[2019-06-14] MEDS: FAMOTIDINE 10 MG/ML 2 ML VIAL IVP SCH (08:29)
[2019-06-14] MEDS: DOCUSATE SODIUM 100 MG CAPSULE PO SCH ×2 (08:29→22:35)
[2019-06-14] MEDS: ChlordiazePOXIDE HCL 25 MG CAPSULE PO SCH ×2 (08:29→22:35)
[2019-06-14 11:51] VITALS: BP 155/93
[2019-06-14 15:10] VITALS: BP 148/86
[2019-06-14 20:57] VITALS: BP 157/85
[2019-06-15] MEDS: PB/HYOSCY/ATR/SCOP/LIDO/MAALOX 55 ML BOTTLE PO PRN (01:08)
[2019-06-15] MEDS: OxyCODONE HCL/ACETAMINOPHEN 5-325 MG TABLET PO PRN ×2 (02:35→08:19)
[2019-06-15] MEDS ORDERED: SODIUM CHLORIDE 0.9% 250 ML IV ONE (04:42)
[2019-06-15] MEDS: CefTRIAXone 1 GM/DEXTROSE 50 ML IV SCH (04:53)
[2019-06-15] MEDS: AZITHROMYCIN 500 MG/NS 250 ML IV SCH (05:32)
[2019-06-15 05:37] VITALS: BP 127/88
[2019-06-15] MEDS: MAGNESIUM OXIDE 400 MG TABLET PO PRN (05:41)
[2019-06-15 07:38] VITALS: BP 137/98
[2019-06-15] MEDS: DOCUSATE SODIUM 100 MG CAPSULE PO SCH (08:17)
[2019-06-15] MEDS: FAMOTIDINE 10 MG/ML 2 ML VIAL IVP SCH (08:17)
[2019-06-15] MEDS: ChlordiazePOXIDE HCL 25 MG CAPSULE PO SCH (08:17)
[2019-06-15 10:46] LABS: ANION GAP 7 mmol/L (8-16); BASOPHILS % (AUTO) 1.2 % (0.0-2.0); CALCIUM, TOTAL 8.9 mg/dL (8.8-10.5); CARBON DIOXIDE 25 mmol/L (22-29); CHLORIDE 102 mmol/L (98-107); CREATININE 0.69 mg/dL (0.60-1.30); GLOMERULAR FILTR. RATE CALC > 60 mL/min (>60); GLUCOSE,RANDOM 108 mg/dL (70-110); HEMOGLOBIN 10.1 g/dL (13.5-17.5); LYMPHOCYTES # (AUTO) 0.9 K/uL (1.0-4.8); LYMPHOCYTES % (AUTO) 30.8 % (22.0-44.0); MEAN CORPUSCULAR VOLUME 113 fL (80-100); MONOCYTES # (AUTO) 0.3 K/uL (0.1-1.0); MONOCYTES % (AUTO) 11.9 % (2.0-9.0); NEUTROPHILS # (AUTO) 1.5 K/uL (1.8-7.7); NEUTROPHILS % (AUTO) 51.1 % (40.0-70.0); PLATELET COUNT (AUTO) 101 K/uL (150-450); POTASSIUM 4.3 mmol/L (3.5-5.1); RED BLOOD CELL COUNT(AUTO) 2.35 MIL/uL (4.50-5.90); RED CELL DISTRIBUTION WIDTH 20.4 % (11.5-14.5); SODIUM SERUM 134 mmol/L (136-145); UREA NITROGEN, BLOOD 16 mg/dL (7-18)
[2019-06-15 10:47] LABS: HEMATOCRIT 30.6 % (41-53)
[2019-06-15 10:52] LABS: ALANINE AMINOTRANSFERASE 34 U/L (12-78); ALBUMIN 3.3 g/dL (3.4-5.0); ALKALINE PHOSPHATASE 112 U/L (46-116); ASPARTATE AMINOTRANSFERASE 64 U/L (15-37); BILIRUBIN,TOTAL 1.3 mg/dL (0.1-1.0); TOTAL PROTEIN, SERUM 7.3 g/dL (6.4-8.2)
[2019-06-15 11:31] VITALS: BP 128/85
[2019-06-15] MEDS ORDERED: LEVO250 PO (15:03)
== END 2019-06-15 15:25 | disposition home or self-care (01) | DRG 194 ==
LOC: EDUNIT# 02:22 → EMS 02:24 → 5S 05:10
PROVIDERS: ADMIT Internal Medicine; ATTEND Internal Medicine
DX: J18.9 Pneumonia, unspecified organism (principal); J44.0 Chronic obstructive pulmonary disease with (acute) lower respiratory infection; F10.229 Alcohol dependence with intoxication, unspecified; I10 Essential (primary) hypertension; E83.42 Hypomagnesemia; F17.210 Nicotine dependence, cigarettes, uncomplicated; F43.10 Post-traumatic stress disorder, unspecified; I25.2 Old myocardial infarction; M06.9 Rheumatoid arthritis, unspecified; Z59.0 Homelessness; Z96.659 Presence of unspecified artificial knee joint; D64.9 Anemia, unspecified; J44.9 Chronic obstructive pulmonary disease, unspecified; F32.9 Major depressive disorder, single episode, unspecified; Z88.1 Allergy status to other antibiotic agents; Z88.8 Allergy status to other drugs, medicaments and biological substances; Z28.21 Immunization not carried out because of patient refusal
CPT/HCPCS: 83735; 87081; 93005; 93306; 94640; G0480; J0456; J0696; J3475; J3490; J7050

== ENCOUNTER 2019-08-19 05:39 | Emergency (ER) | payer MEDICARE, OTHER ==
[~2019-08-19] VITALS: Ht 172.7 cm; Wt 80.0 kg
[~2019-08-19 05:39] MED LIST changes: +LEVO250T75 PO; -OMEP10 PO; -ZOLP5 PO
[2019-08-19] MEDS: ACETAMINOPHEN 500 MG TABLET PO ONE (08:01)
[2019-08-19 08:26] VITALS: BP 128/74
== END 2019-08-19 08:27 | disposition home or self-care (01) ==
LOC: EMS 05:39
DX: S80.02XA Contusion of left knee, initial encounter (principal); F11.10 Opioid abuse, uncomplicated; I10 Essential (primary) hypertension; I25.2 Old myocardial infarction; F10.20 Alcohol dependence, uncomplicated; J44.9 Chronic obstructive pulmonary disease, unspecified; M06.9 Rheumatoid arthritis, unspecified; F17.210 Nicotine dependence, cigarettes, uncomplicated; Z98.890 Other specified postprocedural states; Z88.8 Allergy status to other drugs, medicaments and biological substances; Z88.5 Allergy status to narcotic agent; W01.0XXA Fall on same level from slipping, tripping and stumbling without subsequent striking against object, initial encounter; Y93.89 Activity, other specified; Y92.89 Other specified places as the place of occurrence of the external cause; Y99.8 Other external cause status

== ENCOUNTER 2019-12-21 18:26 | Emergency (ER) | payer MEDICARE, OTHER ==
[~2019-12-21] VITALS: Ht 175.3 cm; Wt 77.0 kg
[~2019-12-21 18:26] MED LIST changes: -LEVO250T75 PO
[2019-12-22 00:28] LABS: ANION GAP 8 mmol/L (8-16); CALCIUM, TOTAL 7.8 mg/dL (8.8-10.5); CARBON DIOXIDE 23 mmol/L (22-29); CHLORIDE 112 mmol/L (98-107); CREATININE 0.54 mg/dL (0.60-1.30); GLOMERULAR FILTR. RATE CALC > 60 mL/min (>60); GLUCOSE,RANDOM 106 mg/dL (70-110); POTASSIUM 3.3 mmol/L (3.5-5.1); SODIUM SERUM 143 mmol/L (136-145); UREA NITROGEN, BLOOD 6 mg/dL (7-18)
[2019-12-22 00:32] LABS: BASOPHILS % (AUTO) 1.5 % (0.0-2.0); EOSINOPHILS % (AUTO) 4.6 % (1.0-6.0); HEMATOCRIT 25.5 % (41-53); HEMOGLOBIN 9.4 g/dL (13.5-17.5); LYMPHOCYTES # (AUTO) 1.1 K/uL (1.0-4.8); MEAN CORPUSCULAR HEMOGLOBIN 37.8 pg (26.0-34.0); MEAN CORPUSCULAR HGB CONC 36.8 G/dL (31.0-37.0); MEAN CORPUSCULAR VOLUME 103 fL (80-100); MONOCYTES # (AUTO) 0.3 K/uL (0.1-1.0); MONOCYTES % (AUTO) 9.4 % (2.0-9.0); NEUTROPHILS # (AUTO) 1.1 K/uL (1.8-7.7); NEUTROPHILS % (AUTO) 41.5 % (40.0-70.0); RED BLOOD CELL COUNT(AUTO) 2.48 MIL/uL (4.50-5.90); RED CELL DISTRIBUTION WIDTH 17.3 % (11.5-14.5)
[2019-12-22 00:33] LABS: ALANINE AMINOTRANSFERASE 22 U/L (12-78); ALBUMIN 2.5 g/dL (3.4-5.0); ALKALINE PHOSPHATASE 158 U/L (46-116); ASPARTATE AMINOTRANSFERASE 41 U/L (15-37); BILIRUBIN,TOTAL 0.9 mg/dL (0.1-1.0); TOTAL PROTEIN, SERUM 6.8 g/dL (6.4-8.2)
[2019-12-22 01:32] LABS: PLATELET COUNT (AUTO) 93 K/uL (150-450)
[2019-12-22 01:47] VITALS: BP 141/76
== END 2019-12-22 02:01 | disposition home or self-care (01) ==
LOC: EDBD 18:26 → EMS 18:26
DX: F10.129 Alcohol abuse with intoxication, unspecified (principal); Z88.8 Allergy status to other drugs, medicaments and biological substances; J44.9 Chronic obstructive pulmonary disease, unspecified; I10 Essential (primary) hypertension; F17.210 Nicotine dependence, cigarettes, uncomplicated; F11.90 Opioid use, unspecified, uncomplicated; Y90.6 Blood alcohol level of 120-199 mg/100 ml
CPT/HCPCS: 80053; 82962; 85025; 99283; G0480